=== PATIENT | male | born 1950 | race Caucasian/White ===

== ENCOUNTER → 2021-09-25 12:13 | Outpatient (BNVA) | payer MEDICARE, SELFPAY | PROVIDERS: Family Provider Nurse Practitioner Family; PCP Nurse Practitioner Family; Visit Provider Internal Medicine Pulmonary Disease | DX: J98.4 Other disorders of lung (principal); I25.10 Atherosclerotic heart disease of native coronary artery without angina pectoris; I25.2 Old myocardial infarction; E11.9 Type 2 diabetes mellitus without complications; J44.9 Chronic obstructive pulmonary disease, unspecified; Z87.891 Personal history of nicotine dependence; M25.641 Stiffness of right hand, not elsewhere classified; M25.642 Stiffness of left hand, not elsewhere classified; Z95.1 Presence of aortocoronary bypass graft | CPT/HCPCS: 36415; 71046; 80053; 83880; 85025; 85651; 86038; 86140; 86200; 86225; 86235; 86431; 99214 ==

== ENCOUNTER 2021-11-14 14:11 | Outpatient (CLI) | payer MEDICARE, SELFPAY ==
--- NOTE | 2021-11-14 14:18 | USCV_ITS ---
Jay Mallory Age: 71 Gender: M : 1950 Exam Date: 11/14/2021 14:34 Ordering Phys: Chiquis Ibrahim Technologist: PARVEZ Exam Location: [facility] [place] Indication: Orthopnea, CHF, h/o CABG BP: 130 / 64 HR: 88 Rhythm: Sinus Technical Quality: Technically difficult study MEASUREMENTS (Male / Female) Normal Values 2D ECHO LV Diastolic Diameter PLAX 6.7 cm 4.2 - 5.9 / 3.9 - 5.3 cm LV Systolic Diameter PLAX 5.5 cm IVS Diastolic Thickness 0.8 cm 0.6 - 1.0 / 0.6 - 0.9 cm IVS Systolic Thickness 1.4 cm LVPW Diastolic Thickness 0.9 cm 0.6 - 1.0 / 0.6 - 0.9 cm LVPW Systolic Thickness 1.2 cm RV Chamber Size 3.2 cm LVOT Diameter 2.0 cm LV Ejection Fraction 2D Teich 36.9 % LV Ejection Fraction MOD 2C 48.1 % LV Ejection Fraction 2C AL 51.0 % LA Diameter 4.3 cm LA Width 4.4 cm LA Height 5.2 cm RA Width 2.7 cm RA Height 4.6 cm Aorta at Sinotubular Diameter 2.2 cm IVC Diameter 2.3 cm DOPPLER AV Peak Velocity 126.0 cm/s LVOT Peak Velocity 87.0 cm/s AV Area Cont Eq vti 2.5 cm squared AV Area Cont Eq pk 2.2 cm squared MV Area PHT 2.2 cm squared Mitral E to A Ratio 0.7 MV E' Velocity 44.0 cm/s Mitral E to MV E' Ratio 8.8 Mitral E to LV E' Lateral Ratio 7.5 Mitral E to LV E' Septal Ratio 10.5 TV Peak E Velocity 62.0 cm/s Right Atrial Pressure 8.0 mmHg PV Peak Velocity 124.0 cm/s RV Acceleration Time 0.1 s RV Ejection Time 0.3 s RV AcT/ET 0.3 FINDINGS Left Ventricle Moderately dilated left ventricular cavity. Severely decreased left ventricular systolic function. Left ventricular ejection fraction is estimated at 25-30 %. Severe global hypokinesis with regional variation. Grade II diastolic dysfunction, moderately elevated filling pressures. Right Ventricle Normal right ventricular size and systolic function. RVSP could not be calculated due to incomplete tricuspid regurgitation velocity profile. Right Atrium Normal right atrial size. Left Atrium Mildly increased left atrial size. Mitral Valve Structurally normal mitral valve. No mitral valve stenosis. Mild mitral valve regurgitation. Aortic Valve Structurally normal trileaflet aortic valve. No aortic valve stenosis. Trace aortic valve regurgitation. Tricuspid Valve Structurally normal tricuspid valve. No tricuspid valve stenosis. Trace tricuspid valve regurgitation. Pulmonic Valve Pulmonic valve not well visualized. No pulmonary valve stenosis. Trace pulmonary valve regurgitation. Pericardium No pericardial effusion. Aorta Normal size aortic root and proximal ascending aorta. IVC Dilated IVC. CONCLUSIONS 1. This is a technically difficult study with poor apical windows. 2. Moderately dilated left ventricular cavity. Severely decreased left ventricular systolic function. Left ventricular ejection fraction is estimated at 25-30 %. Severe global hypokinesis with regional variation. Grade II diastolic dysfunction, moderately elevated filling pressures. 3. Mild mitral valve regurgitation. 4. No prior similar studies to compare. Kae Crook MD (Electronically Signed) Final Date: 18 Nov 2021 08:46 S
== END 2021-11-14 14:12 | disposition home or self-care (01) ==
LOC: RAD 14:13
PROVIDERS: PCP Nurse Practitioner Family; Visit Provider Nurse Practitioner Family
DX: R06.01 Orthopnea (principal)
CPT/HCPCS: 93306

== ENCOUNTER → 2021-11-21 09:08 | Outpatient (BNVA) | payer MEDICARE, SELFPAY | PROVIDERS: PCP Nurse Practitioner Family; Visit Provider Internal Medicine Pulmonary Disease | DX: J98.4 Other disorders of lung (principal); I25.10 Atherosclerotic heart disease of native coronary artery without angina pectoris; I25.2 Old myocardial infarction; E11.9 Type 2 diabetes mellitus without complications; R06.00 Dyspnea, unspecified; Z87.891 Personal history of nicotine dependence; J44.9 Chronic obstructive pulmonary disease, unspecified; M25.641 Stiffness of right hand, not elsewhere classified; M25.642 Stiffness of left hand, not elsewhere classified; E11.8 Type 2 diabetes mellitus with unspecified complications; I10 Essential (primary) hypertension | CPT/HCPCS: 99214 ==

== ENCOUNTER → 2021-11-27 12:01 | Outpatient (BNVA) | payer MEDICARE, SELFPAY | PROVIDERS: PCP Nurse Practitioner Family; Visit Provider Internal Medicine | DX: R06.00 Dyspnea, unspecified (principal); R07.9 Chest pain, unspecified; I11.0 Hypertensive heart disease with heart failure; I50.20 Unspecified systolic (congestive) heart failure; J44.9 Chronic obstructive pulmonary disease, unspecified; I25.10 Atherosclerotic heart disease of native coronary artery without angina pectoris; E11.9 Type 2 diabetes mellitus without complications; Z79.4 Long term (current) use of insulin; Z87.891 Personal history of nicotine dependence; Z95.1 Presence of aortocoronary bypass graft | CPT/HCPCS: 80048; 83880; 99204; 99205; 99215 ==

== ENCOUNTER → 2021-11-27 12:01 | Outpatient (BNVA) | payer MEDICARE, SELFPAY | PROVIDERS: PCP Nurse Practitioner Family; Visit Provider Internal Medicine | DX: I25.10 Atherosclerotic heart disease of native coronary artery without angina pectoris (principal); I11.0 Hypertensive heart disease with heart failure; I50.20 Unspecified systolic (congestive) heart failure; J44.9 Chronic obstructive pulmonary disease, unspecified; E11.9 Type 2 diabetes mellitus without complications; Z87.891 Personal history of nicotine dependence; Z79.4 Long term (current) use of insulin; Z95.1 Presence of aortocoronary bypass graft; I49.3 Ventricular premature depolarization | CPT/HCPCS: 93005; 99204 ==

== ENCOUNTER → 2021-12-05 12:32 | Outpatient (BNVA) | payer MEDICARE, SELFPAY | PROVIDERS: PCP Nurse Practitioner Family; Visit Provider Internal Medicine | DX: R07.9 Chest pain, unspecified (principal); Z79.01 Long term (current) use of anticoagulants; I50.9 Heart failure, unspecified | CPT/HCPCS: 85025; 85610; 93229 ==

== ENCOUNTER 2021-12-09 07:20 | Outpatient (CLI) | payer MEDICARE, SELFPAY ==
[2021-12-09] VITALS (39 sets, daily range): BP systolic 108–160; BP diastolic 50–92; PULSE 68–102; RESP 6–26; TEMP 36.4–37.1; O2SAT 91–97; BMI 28.2
--- NOTE | 2021-12-09 07:15 | XACV_ITS ---
Exam Room: 2 Ht: 183 cm Wt: 100 kg BSA: 2.27 m2 Gender: Male : 1950 Exam Priority: Routine Procedure(s): Procedure Description: Diagnostic procedure Procedure Description: PCI procedure Procedure Description: Right Heart Catheterization Procedure Description: Aortogram Procedure Description: Drug Eluting Coronary Stent Procedure Description: PTCA Procedure Description: Miscellaneous Procedure Description: ACT Procedure Description: Coronary Angiography Diagnostic Cath Status: Elective Diagnostic Findings * Left Main has no significant disease. * Left Anterior Descending has chronic total occlusion in mid segment.. * Circumflex has diffuse disease. Occluded OM branches. Supplies some collateral blood flow to RCA.. * Ramus artery is a large sized vessel. * Bypass graft is occluded * . Ramus: obstructive 70% stenosis, SOCORRO: 3 flow. * INDICATION: 71-year-old man with past medical history of coronary artery disease, COPD, prior CABG had been having worsening dyspnea on exertion. Recent echocardiogram showed EF of 25 to 30%. Plan for right and left heart cath.. * SVG to RCA: Occluded SVG to ramus artery: Occluded SPENCER to LAD: Patent without any significant stenosis. [place] LAD in apical segment has severe stenosis. [place] LAD is a small sized atretic vessel. SVG to OM: Could not be selectively engaged. However can be seen on root angiogram.. * Right heart cath findings: RA pressure: 8/8/5 mmHg RV pressure: 49/0/4 mmHg PA pressure: 48/21/30 mmHg PCW: 18/12/16 mmHg TP AO sat: 95% PA sat: 71% Cardiac output by Sukhdev: 10 L/min Cardiac index: 4.4 PVR: 1.4 Wood units. * Proximal Right Coronary Artery: total occlusion, SOCORRO: 0 flow. * Coronary angiography shows right dominance. PCI Status: Elective PCI Indication: Other Interventional Findings * Procedure detail: We engaged left main artery with XB 3.5 guide catheter. IV heparin was administered to maintain ACT above 250 S. 0.014 run-through guidewire was used to cross the stenotic ramus arteries segment and was put in distal vessel. We performed balloon angioplasty with 3.0 x 12 mm semicompliant balloon. This was followed by placement of 3.5 x 15 mm resolute Geismar drug-eluting stent. At this time final angiogram was performed that showed excellent stent expansion, no residual stenosis and SOCORRO-3 flow. Guidewire and guide catheter were removed. Patient left the Agency Sales Management Assistant in a stable condition.. * Ramus: 70% stenosis treated with a AB TREK 3.00X12 RX BALLOON, and MDT R RILEY 3.5X15 CONY. 0% residual stenosis, SOCORRO: 3 flow. Conclusions 1. Severe multivessel [place] coronary artery disease. 2. SVG to ramus and SVG to 3. RCA are occluded. 4. SPENCER to LAD is patent 5. however [place] 6. LAD distal to anastomosis is atretic vessel. 7. SVG to OM could not be selectively engaged however 8. can be seen on root angiogram.. 9. Severe large ramus artery stenosis s/p successful revascularization with CONY x1. 10. Normal right and left-sided cardiac pressures. 11. Patient has prior CABG. 12. Ramus was treated with a Balloon, and Drug Eluting Stent. Recommendations * Aspirin and Plavix for at least 1 year. * High intensity statin therapy. * Outpatient cardiology follow-up in 4 weeks. Interventional RX Recommendation: PCI w/o planned CABG Diagnostic RX Recommendation: PCI w/o planned CABG Pressures Phase:Rest AO : 134 / 67 ( 96 ) @ 10:26:00 AM 133 / 70 ( 98 ) @ 10:37:00 AM 138 / 76 ( 105 ) @ 10:46:00 AM 150 / 68 ( 107 ) @ 10:52:00 AM 139 / 65 ( 97 ) @ 10:57:00 AM RV : 49 / 0 / 4 @ 10:23:00 AM PA : 48 / 21 ( 30 ) @ 10:22:00 AM RA : a wave = 8 v wave = 8 mean = 5 @ 10:24:00 AM PCW : a wave = 18 v wave = 12 mean = 16 @ 10:22:00 AM O2 Content Phase:Rest PA : O2 Content O2: 71.2 @ 10:37:00 AM Saturations Phase:Rest AO : 85 @ 10:26:00 AM PA : 71 @ 10:37:00 AM Cardiac Output Phase:Rest Sukhdev : 10 @ 10:10:45 AM Sukhdev Cardiac Index: 5 @ 10:10:45 AM Flow Phase:Rest Qp : 10 @ 10:10:45 AM Qs : 10 @ 10:10:45 AM Clinical Evaluation EBL: 5mL-10mL Procedural Details Procedure Consent Obtained. Admit Source: Out Patient. Pre-Procedure Time Out. Identified patient by full name and date of as verbalized by the patient/guarantor. Does the consent match the physician's order: Yes. Accurate & Complete Informed Consent: Yes. Inpatient/Outpatient History & Physical on Chart: Yes. If H&P is completed, is and addenduem needed: N/A; If yes, is the addendum complete: N/A. Visualize and Verify Site with Patient/Guarantor: N/A. Relevant Radiology Images available: N/A. Pre-op teaching completed and patient verbalized understanding. The risks, benefits, and alternatives of sedation and/or procedure were discussed by physician. The patient agrees to continue. Procedure started. [facility] Clinical Fraility Score: 3: Managing Well. Agency Sales Management Assistant Indications: LV dysfunction, New onset CHF. Chest Pain Symptom Assessment: Atypical Angina. Correct patient, site and procedure confirmed by cath team. Current diagnosis: New onset CHF. PERRLA. Strong, equal hand mailer apprentice bilaterally. Lungs clear x 5 lobes. IV Site on Arrival: 20 gauge in the left anticubital. IV Fluids: 0.9% NaCl at KVO. 0 mL infused prior to laborer chicken farm. Pre Procedural Pulses: bilateral posterior tibial was Doppled. Pre Procedural Pulses: bilateral dorsalis pedis was Doppled. Pre Procedural Pulses: right radial was 3+. right groin was prepped with chloroprep then draped in the usual sterile fashion. left groin was prepped with chloroprep then draped in the usual sterile fashion. Physician notified. Baseline sample Acquired. HR: 42 BPM. Physician arrived. Physician scrubbed in. Immediate Pre-Procedure Time Out. Correct Patient: Yes; Correct Procedure: Yes; Correct Site: Yes; Correct Patient Position: Yes; Correct Supplies: Yes; Dried Flammable Prep: Yes; Blood Products Available: n/a. Lidocaine 1% infiltrated to the right groin. Venous access obtained. Arterial access obtained with micropuncture set. Brisbin-Rolando MON catheter inserted. Pressure measurements obtained. Brisbin-Rolando out. A 5 afghan JL4 catheter in over wire. Multiple views taken of left coronary artery. Catheter removed over the standard wire. Oxygen started at 2liters/min via nasal canula. A 5 afghan JR4 catheter in over wire. SVG to RCA occluded. SVG to Ramus occluded. SPENCER to LAD visualized and patent. Catheter removed over the standard wire. A 5 afghan Angled Pig catheter in over wire. Aortogram performed in NAVA @ 20 mL/second for a total of 40 mL. Catheter out. A 5 afghan LCB catheter in over wire. Catheter removed over the standard wire. A 6 afghan AL1 catheter in over wire. 6 afghan XB 3.5 guide catheter was inserted over the wire. Catheter removed over the standard wire. Runthrough guidewire was advanced through the guide catheter to lesion in the Ramus. Balloon inserted to lesion in the Ramus. Inflation number : 1 A AB TREK 3.00X12 RX BALLOON was prepped and advanced across the Ramus , then inflated to 12 MONAE for 0:18 seconds. Balloon out. Stent inserted to lesion in the Ramus. Inflation Number : 2 A FAUSTINO Herring RILEY 3.5X15 CONY -Lot Number# [id number] Exp 09-04-2024 was prepped and advanced across the Ramus. The stent was deployed at 12 MONAE for 0:25 seconds. ACT drawn. Results 357 seconds. Therapeutic limits - pre-heparin administration 90-150 seconds and monitoring heparin during a vascular procedure >250 seconds. Stent balloon out over wire. Results checked. Wire out. Guide catheter out. Medication's Wasted: Heparin = 4000 u. Medication's Wasted: Nitro = 49.8 mg. A Suture was successful obtaining hemostatsis at the Right Femoral vein insertion site. A Suture was successful obtaining hemostatsis at the Femoral artery insertion site. Total IV fluids: 200 mL. Sheath(s) sutured into position with 2-0 silk and sterile 4x4's and Op-site applied over the site. No oozing or signs and symptoms of hematoma noted. Post Procedure: Pulses reassessed and unchanged. PERRLA. Strong, equal hand mailer apprentice bilaterally. No VTE prophylaxis required. PCI Indication: CAD (without ischemic symptoms), Severe mid Ramus stenosis, LV dysfunction. Post-op diagnosis: Severe Ramus stenosis. Complications: none. Estimated blood loss: 5mL-10mL. Responsiveness - Normal response to verbal stimuli; alert and oriented, PERRLA. Airway - Unaffected, no intervention required; spontaneous ventilation. Circulation: W/N/L, pulses unchanged. Nausea/Vomiting: No. Procedure completed. Patient transferred by bed to 1st floor. Vital chart was stopped. Access Site Site: Right Femoral vein Sheath Size: 6 Fr Hemostasis Method: Suture Hemostasis Success: Successful Site: Femoral artery Sheath Size: 6 Fr Hemostasis Method: Suture Hemostasis Success: Successful Procedure Medications Start: 8:58 AM Stop: 8:58 AM Medication: Fentanyl Amount: 50 mcg Route: I.V. Start: 8:58 AM Stop: 8:58 AM Medication: 0.9% Saline Amount: 75 ml/hr Route: I.V. drip Start: 9:06 AM Stop: 9:06 AM Medication: Versed Amount: 1 mg Route: I.V. Start: 9:15 AM Stop: 9:15 AM Medication: Versed Amount: 1 mg Route: I.V. Start: 9:17 AM Stop: 9:17 AM Medication: Fentanyl Amount: 50 mcg Route: I.V. Start: 9:27 AM Stop: 9:27 AM Medication: Versed Amount: 1 mg Route: I.V. Start: 9:32 AM Stop: 9:32 AM Medication: Versed Amount: 1 mg Route: I.V. Start: 9:45 AM Stop: 9:45 AM Medication: Fentanyl Amount: 50 mcg Route: I.V. Start: 9:54 AM Stop: 9:54 AM Medication: Heparin Amount: 06194 units Route: I.V. Start: 9:55 AM Stop: 9:55 AM Medication: Fentanyl Amount: 50 mcg Route: I.V. Start: 10:03 AM Stop: 10:03 AM Medication: Nitrogylcerin Amount: 200 mcg Route: I.A. Start: 10:05 AM Stop: 10:05 AM Medication: Plavix Amount: 600 mg Route: P.O. Start: 10:06 AM Stop: 10:06 AM Medication: Aspirin Amount: 325 mg Route: P.O. I, the attending physician, have reviewed and verified all procedure medications. Yes, all medications given per verbal order History/Risk Factors Hypertension: Yes Dyslipidemia: No Peripheral Arterial Disease (PAD): No Myocardial Infarction (DE): No Obesity: No Renal Disease: No Tobacco Use: Former Prior Interventions PCI: No CABG: Yes Valve Surgery: No Report Signatures Finalized by Ignacio Paulino MD on 12/15/2021 11:51 PM
[2021-12-09] MEDS: diphenhydrAMINE 50 mg Capsule PO (07:36)
--- NOTE | 2021-12-09 08:50 | W.PM.OPSUD ---
Surgery/Procedure H&P Update DATE OF PROCEDURE: December 09, 2021 DATE H&P PERFORMED: 11/27/21 H&P UPDATE INFORMATION: I have reviewed H&P completed within last 30 days, I have examined patient prior to procedure and No changes to prior documentation PREOP DIAGNOSIS: New onset congestive heart failure PRIMARY INDICATION FOR PROCEDURE: New onset congestive heart failure PLANNED PROCEDURE: Operation Date: 12/09/21 08:30 Proposed Procedures p Cardiac Catheterization(Bilateral) - Ignacio Paulino M.D Possible percutaneous coronary intervention PATIENT REASSESSED PRIOR TO SEDATION, WITH NO CHANGE NOTED: Yes PHYSICAL EXAM: alert, oriented x 3, clear to auscultation bilaterally and regular rate & rhythm AIRWAY EVAL/ANESTHESIA PLAN: ASA III, Local Anesthesia, Risks, benefits & alternatives of sedation and/or procedure discussed and Patient agrees to continue as planned ADDITIONAL INFORMATION: Moderate sedation
[2021-12-09 09:29] LABS: ABG PCO2 44.7 mmHg (35-45); ABG PH Result 7.39 (7.35-7.45); Arterial Blood Gas Hematocrit 42.6 % (42-52); Base Excess ABG 1.2 mmol/L (-2.0-2.0); Blood Gas Operator Identificat CAK; Blood Gas Sample Type Arterial; HCO3 ABG 26.8 mmol/L (22-26); PO2 ABG 38.8 mmHg (80.0-100.0)
[2021-12-09 09:30] LABS: ABG PCO2 46.6 mmHg (35-45); ABG PH Result 7.36 (7.35-7.45); Arterial Blood Gas Hematocrit 42.2 % (42-52); Base Excess ABG 0.2 mmol/L (-2.0-2.0); Blood Gas Operator Identificat CAK; Blood Gas Sample Type Arterial; HCO3 ABG 26.2 mmol/L (22-26)
[2021-12-09 11:14] LABS: Glucose Point of Care 173 mg/dL (70-110)
--- NOTE | 2021-12-09 13:53 | PC.NURSE ---
PTT drawn by lab personnel at 1300. PTT still pending.
[2021-12-09 14:37] LABS: Partial Thromboplastin Time 160.3 SECONDS (23.9-36.7)
[2021-12-09 16:52] LABS: Partial Thromboplastin Time 32.4 SECONDS (23.9-36.7)
[2021-12-09] MEDS: fentaNYL 50 mcg/mL INJ 2mL IVP (17:37)
[2021-12-09] MEDS: carvedilol 3.125 mg Tablet PO (18:19)
[2021-12-09 18:26] LABS: Glucose Point of Care 232 mg/dL (70-110)
[2021-12-09] MEDS: insulin lispro 100 unit/1 mL SUBCUT (18:41)
--- NOTE | 2021-12-09 19:00 | PC.NURSE ---
Pt. arrived to ICU2 from CSU. Pt. is post cardiac cath with right groin cath site. Cath site has gauze with tagaderm over site. Site is clean, clear, intact, soft, and free from bruising at this time. No needs identified at this time. Will continue bedrest at this time.
[2021-12-09 21:18] LABS: Glucose Point of Care 197 mg/dL (70-110)
--- NOTE | 2021-12-09 23:45 | PC.NURSE ---
Bedrest is complete. Pt. cath site is clean clear intact and soft. No needs identified at this time.
[2021-12-10 04:19] LABS: Basophils # 0.1 10^3/uL (0.0-0.1); Basophils % 0.7 %; Eosinophils # 0.2 10^3/uL (0.0-0.8); Eosinophils % 2.8 %; Hematocrit 38.6 % (42.0-52.0); Hemoglobin 13.2 g/dL (11.7-16.6); Lymphocytes # 1.4 10^3/uL (0.8-4.8); Lymphocytes % 17.2 %; Mean Corpuscular HGB Conc 34.2 g/dL (30.0-36.0); Mean Corpuscular Hemoglobin 30.1 pg (28.0-34.0); Mean Corpuscular Volume 88.1 fl (80-94); Mean Platelet Volume 11.3 fL (7.4-10.4); Monocytes % 12.2 %; Neutrophils % 66.7 %; Nucleated Red Blood Cells % 0 %; Platelet Count 175 10^3/cmm (130-400); Red Blood Count 4.38 10^6/uL (4.1-5.3); Red Cell Distribution Width 13.3 % (12.1-15.1); White Blood Count 8.1 10^3/uL (4.0-10.0)
[2021-12-10 04:35] LABS: Anion Gap 17.2 (5-19); Blood Urea Nitrogen 25 mg/dL (8-23); Calcium 8.4 mg/dL (8.5-10.5); Carbon Dioxide 23 mmol/L (22-29); Chloride 103 mmol/L (98-107); Glucose 170 mg/dL (65-115); Osmolality Calculated 296 mOsm/kg (285-295); Potassium 4.2 mmol/L (3.5-5.1); Sodium 139 mmol/L (136-145)
[2021-12-10 06:00] VITALS: PULSE 88
[2021-12-10 07:25] LABS: Glucose Point of Care 169 mg/dL (70-110)
[2021-12-10] MEDS: insulin lispro 100 unit/1 mL SUBCUT (08:05)
[2021-12-10] MEDS: aspirin 81 mg EC Tablet PO (09:04)
[2021-12-10] MEDS: clopidogrel 75 mg Tablet PO (09:04)
[2021-12-10] MEDS: lisinopril 20 mg Tablet 40 MG PO (09:04)
[2021-12-10] MEDS: carvedilol 3.125 mg Tablet PO (09:04)
--- NOTE | 2021-12-10 09:05 | PM.SDS ---
Short Stay Summary Providers Date of Admit/Discharge: 12/09/21 Attending Provider: Ignacio Paulino M.D Primary Care Provider: Chiquis Ibrahim Chief Complaint: Dyspnea on exertion HPI History of Present Illness Jay Mallory is a 71 year old male with past medical history of coronary artery disease, COPD, prior CABG who was referred to [facility] care and for evaluation of dyspnea on exertion.? His recent echocardiogram has shown an EF of 25 to 30%.? Plan was to perform right and left heart cath Review of Systems Const: Denies: fever(s), chills, change in weight, fatigue or diaphoresis Eyes: Denies: change in vision or eye redness ENMT: Denies: throat pain, odynophagia, mouth pain or epistaxis Card: Denies: chest pain, palpitations, irregular heart rhythm, edema, swelling of feet/ankles, lightheadedness, syncope, pre-syncope, dyspnea on exertion, orthopnea or leg pain with exertion Resp: Denies: dyspnea, productive cough or wheezing GI: Denies: nausea, vomiting, hematemesis, hematochezia or melena : Denies: hematuria Musc: Denies: extremity swelling or joint pain Skin/Breast: Denies: rash, pruritus, erythema or new lesions Neuro: Denies: numbness in extremities, weakness in extremities, sensory changes, frequent falls, dizziness, Slurred speech present or difficulty communicating thoughts Psych: Denies: anxiety, depression, irritability, suicidal ideation or homicidal ideation Endo: Denies: polyuria, polydipsia or excessive sweating Daniel/Lymph: Reports: easy bruising and easy bleeding Home Meds/Allergies Home Medications and Allergies Home Medications Medication Instructions Recorded Confirmed Type aspirin 81 mg tablet,delayed 81 mg PO DAILY 09/25/21 12/16/21 History release dapagliflozin 10 mg tablet 10 mg PO DAILY 09/25/21 12/16/21 History (Farxiga) evolocumab 140 mg/mL subcutaneous See Rx Instructions SUBCUT .COMPLEX 09/25/21 12/16/21 History pen injector (Repatha SureClick) insulin aspart U-100 100 unit/mL See Rx Instructions SUBCUT TID 09/25/21 12/16/21 History (3 mL) subcutaneous pen (Novolog Flexpen U-100 Insulin aspart) insulin glargine U-300 conc 300 80 unit SUBCUT DAILY ml 09/25/21 12/16/21 History unit/mL (3 mL) subcutaneous pen (Toujeo Max U-300 SoloStar) krill oil 500 mg capsule See Rx Instructions PO .COMPLEX 09/25/21 12/16/21 History lansoprazole 30 mg capsule,delayed 30 mg PO DAILY 09/25/21 12/16/21 History release (Prevacid) ramipril 10 mg capsule 20 mg PO DAILY cap 09/25/21 12/16/21 History Allergies Allergy/AdvReac Type Severity Reaction Status Date / Time No Known Drug Allergies Allergy Unknown Unknown Verified 12/16/21 11:20 PFSH Acute PFSH: Medical History COPD (chronic obstructive pulmonary disease) Coronary artery disease Diabetes Hypertension Surgical History History of coronary artery bypass graft Family History Father Diabetes Hypertension Heart disease Mother Cancer Diabetes Brother Diabetes Sister Diabetes Social History Smoking and tobacco status: former smoker Quit status (tobacco): has quit using tobacco Year quit tobacco: 2020 after [place] Former quit date comment: 2ppd x 40 years Vitals/I&O/Wt Last Vital Signs Temp 98.3 F 12/09/21 16:01 Pulse 88 12/10/21 06:00 Resp 16 12/09/21 18:00 BP 142/87 12/09/21 18:00 Pulse Ox 95 12/09/21 18:00 12/09/21 12/10/21 12/10/21 22:59 06:59 14:59 Intake Total 120 / 120 240 / 240 Output Total 800 / 1050 1050 / 2100 400 / 400 Balance -680 / -930 -1050 / -1980 -160 / -160 Weight last 48 hrs Weight 220 lb Physical Exam Narrative: GENERAL: Patient is alert, awake and oriented x3. [] NECK: No jugular vein distension. [] HEENT: No cyanosis. No icterus. No pallor. [] HEART: Regular S1 and S2. No murmur, rub or gallop. [] LUNGS: Clear to auscultate bilaterally. [] ABDOMEN: Soft, nontender and nondistended. Positive bowel sounds. No guarding, rebound or tenderness. [] CENTRAL NERVOUS SYSTEM: Grossly nonfocal. [] EXTREMITIES: Lower extremities with 1+ edema bilaterally. Pulses palpable in the lower extremities, both dorsalis pedis and posterior tibial. [] Hospital Course Hospital Course Jay Mallory is a 71 year old male with past medical history of coronary artery disease, COPD, prior CABG who was referred to establish care and for evaluation of dyspnea on exertion.? His recent echocardiogram has shown an EF of 25 to 30%.? Plan was to perform right and left heart cath. Coronary angiogram demonstrated patent SPENCER to LAD, patent SVG to OM. Large sized ramus artery had severe stenosis and underwent successful revascularization with CONY x1. SVG to RCA and RCA were occluded. SSS Data Data Completed and Pending: Pending at discharge Category Date Time Status VENDING SUPERVISOR request for service Routin e Exams 12/09/21 07:15 Taken ABG ONLY [Arteria l Blood Gas W/O Co ox] Stat Lab 12/09/21 09:18 Results ABG ONLY [Arteria l Blood Gas W/O Co ox] Stat Lab 12/09/21 09:18 Results Discharge Plan Discharge Patient Disposition: Home Prescriptions: New clopidogrel 75 mg tablet 75 mg PO DAILY Qty: 90 3RF Continued Farxiga 10 mg tablet 10 mg PO DAILY 0RF aspirin 81 mg tablet,delayed release (DR/EC) 81 mg PO DAILY 0RF krill oil 500 mg capsule See Rx Instructions PO .COMPLEX 0RF Rx Instructions: 1 tab daily insulin aspart U-100 [Novolog Flexpen U-100 Insulin] 100 unit/mL (3 mL) insulin pen See Rx Instructions SUBCUT TID 0RF Rx Instructions: Use per sliding scale 6 times daily; Mao dose 100Units per day lansoprazole [Prevacid] 30 mg capsule,delayed release(DR/EC) 30 mg PO DAILY 0RF ramipril 10 mg capsule 20 mg PO DAILY 0RF Repatha SureClick 140 mg/mL pen injector See Rx Instructions SUBCUT .COMPLEX 0RF Rx Instructions: 1ml subcutaneously every two weeks Toujeo Max U-300 SoloStar 300 unit/mL (3 mL) insulin pen 80 unit SUBCUT DAILY 0RF carvedilol [Coreg] 3.125 mg tablet 3.125 mg PO BID Qty: 180 3RF Rx Instructions: must administer with a meal/food furosemide [Lasix] 20 mg tablet 20 mg PO DAILY Qty: 90 3RF Discharge Orders: Discharge Order (Routine); Ordered 12/10/21 Ordered By: Ignacio Paulino Referrals: Ignacio Paulino M.D [Physician] - 01/06/22 3:30 pm Ann Marie Paniagua FNP [Nurse Practitioner] - 12/16/21 10:45 am Diet: Diabetic Activity: Increase activity as tolerated Patient Instructions: Clopidogrel (By mouth) (Plavix), Coronary Angioplasty (DC), Opioid Safety Activity Restrictions/Additional Instructions: Please do not lift more than 5 pounds of weight for the next 5 days Discharge Date/Time: 12/10/21 11:00 Attestations Medical Necessity Statement*: Care not expected to cross 2 midnights. Patient came as outpatient for right and left heart cath and underwent successful revascularization of ramus artery. He stayed for observation overnight and is stable to be discharged now. Time Spent in Patient Care*: less than 30 min Quality Metrics Clinical Quality Measures: [ No reported AMI, CVA or VTE this stay] Coding Level of Care Code Acute Systems Trainer for Jesus Reynoso
--- NOTE | 2021-12-10 09:10 | PC.NURSE ---
Patient has no reports of pain at this time. Has no questions about medications. Education on new medication, Plavix. Appears to be in good spirits. Dr. Paulino in room planning discharge today.
--- NOTE | 2021-12-10 09:43 | PC.CHAP ---
Pastoral Care Encounter/Spiritual Assessment Type of Contact [] Declined plant engineering manager visit [] Patient/Family/Request visit [] Outpatient visit [] Follow-up visit [] Physician referral [] Code/Alert [x] Routine visit [] Staff referral [] Actively dying [] Patient sleeping [] Family support [] [] Out of room [] Palliative care [] [] Receiving care in room [] Pre-surgical visit [] Trauma [] Long length of stay [x] ICU visit [x] Other: on phone Relational/Emotional Strength [] Patient feels connected with others/family/visitors/staff [] Distress [] Loneliness/isolation [] Abandonment Spirituality of Patient [] Person of Ciara [] Attends Confucianism of their Ciara [] Believes in Prayer [] Reads Bible or Latter Day materials [] There are Spiritual issues to be addressed Selling Underwriter Interventions [x] Prayer [] Active listening [] Non-anxious presence [] Spiritual/emotional support [] Crisis/trauma care [] Spiritual counseling [] Bereavement support [] Provided bereavement packet [] Provided Bible/devotional materials [] Provided toy/stuffed animal, coloring book to patient or family member [] Provided Communion [] Anointing/Woodruff [] Salvation [x] Completed spiritual assessment [] Other: Impact on Illness or Injury [] Angry [] Fearful [] Anxious [] Often cries [] Exhaustion [] Unable to work [] Unable to attend yazidi [] Unable to walk/stand [] Unable to read [] Unable to drive [] Unable to eat/drink [] Unable to sleep [] Unable to be with family [] Patient intubated [] Other: Summary Time spent with patient
--- NOTE | 2021-12-10 11:01 | PC.NURSE ---
Patient discharged to home. Line removed. Left via wheelchair to personal vehicle with driving. Extensive education provided on new medication plavix. All questions answered.
== END 2021-12-10 11:00 | disposition home or self-care (01) ==
LOC: CCL 07:23 → ICU 12-10 09:05 → CSU 12-10 09:44 → ICU 12-10 09:44
PROVIDERS: PCP Nurse Practitioner Family; Visit Provider Internal Medicine
DX: I25.10 Atherosclerotic heart disease of native coronary artery without angina pectoris (principal); I11.0 Hypertensive heart disease with heart failure; I50.9 Heart failure, unspecified; Z95.1 Presence of aortocoronary bypass graft; Z87.891 Personal history of nicotine dependence; J44.9 Chronic obstructive pulmonary disease, unspecified; Z79.82 Long term (current) use of aspirin; E11.9 Type 2 diabetes mellitus without complications; Z79.4 Long term (current) use of insulin; I10 Essential (primary) hypertension; Z82.49 Family history of ischemic heart disease and other diseases of the circulatory system; Z83.3 Family history of diabetes mellitus
CPT/HCPCS: 36415; 36416; 80048; 82803; 82962; 85025; 85347; 85730; 93455; 96360; 96372; 99152; 99153; C1725; C1751; C1769; C1874; C1887; C1894; C9600; J1644; J1815; J2250; J3010; J3490; J7030; Q0163; Q9967

== ENCOUNTER → 2021-12-16 10:47 | Outpatient (BNVA) | payer MEDICARE, SELFPAY | PROVIDERS: PCP Nurse Practitioner Family; Visit Provider Nurse Practitioner Family | DX: Z09 Encounter for follow-up examination after completed treatment for conditions other than malignant neoplasm (principal); I25.10 Atherosclerotic heart disease of native coronary artery without angina pectoris; I10 Essential (primary) hypertension; Z87.891 Personal history of nicotine dependence | CPT/HCPCS: 80048; 99214 ==

== ENCOUNTER → 2022-01-06 15:49 | Outpatient (BNVA) | payer MEDICARE, SELFPAY | PROVIDERS: PCP Nurse Practitioner Family; Visit Provider Internal Medicine | DX: I25.10 Atherosclerotic heart disease of native coronary artery without angina pectoris (principal); I11.0 Hypertensive heart disease with heart failure; I50.9 Heart failure, unspecified; J44.9 Chronic obstructive pulmonary disease, unspecified; E11.9 Type 2 diabetes mellitus without complications; Z79.4 Long term (current) use of insulin; Z87.891 Personal history of nicotine dependence | CPT/HCPCS: 99214 ==

== ENCOUNTER 2022-01-21 10:42 | Outpatient (CLI) | payer MEDICARE, SELFPAY ==
--- NOTE | 2022-01-21 10:45 | CT_ITS ---
WS: [id number] LDCT LUNG CANCER SCREENING HISTORY: lung screening TECHNIQUE: Axial imaging performed from the apices to 1 cm below the costophrenic angles. Coronal and sagittal reformats are submitted with axial MIP series. All CT scans at [facility] use at least one of these dose optimization techniques: automated exposure control; mA and/or kV adjustment per patient size (includes targeted exams where dose is matched to clinical indication); or iterativ e reconstruction. DLP: 73.10 mGy.cm DIvol: Mean CTDIvol: 1.60 (mGy) COMPARISON: None available. Diagnostic quality: Satisfactory Lung Nodules: 3 mm slightly spiculated nodule at the RIGHT lung base, image 180 of series 5. Otherwis e chronic emphysema. No mass. No endobronchial lesions. Heart: 1 Mild cardiac enlargement. Other findings: Atherosclerosis aorta. No adenopathy. Moderate to extensive coronary artery atheroscl erotic disease. No adrenal adenoma. RIGHT renal cystic masses are probably cysts. Cannot be further e valuated on a nonenhanced examination. Renal ultrasound follow-up would provide additional informatio n. Severe fatty replacement of the pancreas. CT/CT lung screening 48081 IMPRESSION: LUNG-RADS: 2-Benign Appearance or Behavior FOLLOW UP: 12 Month: Continue annual screening with LDCT OTHER FINDINGS (S MODIFIER): None.
== END 2022-01-21 10:43 | disposition home or self-care (01) ==
LOC: RAD 10:44
PROVIDERS: PCP Nurse Practitioner Family; Visit Provider Internal Medicine Pulmonary Disease
DX: Z12.2 Encounter for screening for malignant neoplasm of respiratory organs (principal); Z87.891 Personal history of nicotine dependence
CPT/HCPCS: 71271

== ENCOUNTER → 2022-01-22 09:59 | Outpatient (BNVA) | payer MEDICARE, SELFPAY | PROVIDERS: PCP Nurse Practitioner Family; Visit Provider Internal Medicine Pulmonary Disease | DX: R06.00 Dyspnea, unspecified (principal); Z95.1 Presence of aortocoronary bypass graft; I25.10 Atherosclerotic heart disease of native coronary artery without angina pectoris; I25.2 Old myocardial infarction; Z87.891 Personal history of nicotine dependence | CPT/HCPCS: 99214 ==

== ENCOUNTER 2022-03-14 12:02 | Outpatient (CLI) | payer MEDICARE, SELFPAY ==
--- NOTE | 2022-03-14 13:00 | USCV_ITS ---
Jay Mallory Age: 72 Gender: M : 1950 Exam Date: 03/14/2022 13:03 Ordering Phys: Ignacio Paulino M.D ([email or web address]) Technologist: Kimmy Carrasquillo [place]am [place] [facility] [place]ication: CHF with unknown LVEF BP: 132 / 88 HR: 81 Rhythm: Sinus Technical Quality: Adequate MEASUREMENTS (Male / Female) Normal Values 2D ECHO LV Diastolic Diameter PLAX 5.4 cm 4.2 - 5.9 / 3.9 - 5.3 cm LV Systolic Diameter PLAX 4.5 cm IVS Diastolic Thickness 1.1 cm 0.6 - 1.0 / 0.6 - 0.9 cm IVS Systolic Thickness 1.3 cm LVPW Diastolic Thickness 1.2 cm 0.6 - 1.0 / 0.6 - 0.9 cm LVPW Systolic Thickness 1.5 cm LVOT Diameter 2.2 cm LV Ejection Fraction 2D Teich 35.2 % LV Ejection Fraction MOD 2C 52.6 % LV Ejection Fraction 2C AL 52.7 % LA Diameter 3.4 cm LA Width 3.5 cm LA Height 5.3 cm RA Width 3.1 cm RA Height 5.5 cm Aorta at Sinotubular Diameter 2.5 cm M-MODE MV E Point Septal Separation 2.3 cm FINDINGS Left Ventricle Right Ventricle Right Atrium Left Atrium Mitral Valve Aortic Valve Tricuspid Valve Pulmonic Valve Pericardium Aorta IVC CONCLUSIONS This is a limited echocardiogram to assess LV systolic function LV systolic function is severely reduced with EF of 25 to 30%. Severe global hypokinesis is seen. Compared to prior echocardiogram from 10/2021, no significant changes are seen in the LV systolic function Ignacio Paulino MD (Electronically Signed) Final Date: 23 March 2022 17:19 S
[2022-03-14] MEDS: perflutren protein-a microsphr 0.22 mg/mL SDV 3 mL IV (13:37)
== END 2022-03-14 12:03 | disposition home or self-care (01) ==
PROVIDERS: PCP Nurse Practitioner Family; Visit Provider Internal Medicine
DX: I50.9 Heart failure, unspecified (principal)
CPT/HCPCS: C8924

== ENCOUNTER → 2022-07-14 12:28 | Outpatient (BNVA) | payer MEDICARE, SELFPAY | PROVIDERS: PCP Nurse Practitioner Family; Visit Provider Internal Medicine | DX: I25.10 Atherosclerotic heart disease of native coronary artery without angina pectoris (principal); R93.1 Abnormal findings on diagnostic imaging of heart and coronary circulation; J44.9 Chronic obstructive pulmonary disease, unspecified; E11.9 Type 2 diabetes mellitus without complications; Z79.4 Long term (current) use of insulin; I11.0 Hypertensive heart disease with heart failure; I50.9 Heart failure, unspecified; Z87.891 Personal history of nicotine dependence; Z95.1 Presence of aortocoronary bypass graft | CPT/HCPCS: 99214 ==

== ENCOUNTER → 2022-07-17 08:17 | Outpatient (BNVA) | payer MEDICARE, SELFPAY | PROVIDERS: PCP Nurse Practitioner Family; Visit Provider Thoracic Surgery (Cardiothoracic Vascular Surgery) | DX: I11.0 Hypertensive heart disease with heart failure (principal); I50.9 Heart failure, unspecified; Z87.891 Personal history of nicotine dependence | CPT/HCPCS: 99203 ==

== ENCOUNTER → 2022-08-04 09:14 | Outpatient (BNVA) | payer MEDICARE, SELFPAY | PROVIDERS: PCP Nurse Practitioner Family; Visit Provider Family Medicine | DX: E11.9 Type 2 diabetes mellitus without complications (principal); I11.0 Hypertensive heart disease with heart failure; I50.9 Heart failure, unspecified; Z95.1 Presence of aortocoronary bypass graft; I25.10 Atherosclerotic heart disease of native coronary artery without angina pectoris | CPT/HCPCS: 80053; 80061; 83036; 84443; 85025 ==

== ENCOUNTER → 2022-08-12 06:00 | Day surgery (SDC) | payer MEDICARE, SELFPAY ==
--- NOTE | 2022-08-07 10:18 | ECG_ITS ---
[facility] Test Date: 2022-08-07 Pat Name: Jay Mallory Department: Room: Gender: Male Transmission Inspector: : 1950 Requested By: Jaylin Jefferson Order Number: [id number] Priscilla MD: Kae Crook M.D. Measurements Intervals [place] Rate: 77 P: 15 [place]: 182 QRS: -79 QRSD: 98 T: 37 QT: 385 QTc: 438 Interpretive Statements SINUS RHYTHM WITH FREQUENT VENTRICULAR PREMATURE COMPLEXES POSSIBLE ANTERIOR MYOCARDIAL INFARCTION , PROBABLY OLD [30 ms Q WAVE IN V3/V4, OR R < 0.2 mV IN V4] INFERIOR MYOCARDIAL INFARCTION , PROBABLY OLD [40+ ms Q WAVE AND/OR ST/T ABNORMALITY IN II/aVF] No previous ECG available for comparison Electronically Signed On 08-08-2022 8:13:56 CHURCH BUSINESS ADMINISTRATOR by Kae Crook M.D. [id number]
[2022-08-07 10:34] VITALS: BMI 28.2
[2022-08-07 11:02] LABS: Add Urine Microscopic? NO; Charge for UA Resulting for Rev
[2022-08-07 11:09] LABS: Bilirubin Urine Neg (Negative); Blood Urine Neg (Negative); Glucose Urine UA 4+ (Normal); Ketones Urine Negative (Negative); Leukocyte Esterase Urine Negative (Negative); Nitrate Urine Negative (Negative); Protein Urine Neg (Negative); Urine Appearance Clear (CLEAR); Urine Color Yellow (Yellow); Urobilinogen Urine Neg (Negative); pH Urine 5 (5-7)
--- NOTE | 2022-08-07 11:12 | P.ANESASSM_ITS ---
Pre-Anesthetic Assessment Height/Weight: Height 1.88 m Weight 99.79 kg Preop Diagnosis: congestive heart failure Operation Date: 08/12/22 07:00 Proposed Procedures p Defibrillator Placement 18225,I50.9(Not Applicable) - Freddy Tony MD Familial anesthetic complications: None Social No alcohol and No tobacco Exam alert, oriented x 3, clear to auscultation bilaterally and regular rate & rhythm Airway Mallampati: Class III Dentition: false CV/HEM Coronary Artery Disease Cath 12/18 Conclusions ? 1. Severe multivessel prairie band coronary artery disease. ? 2. SVG to ramus and SVG to ? 3. RCA are occluded. ? 4. SPENCER to LAD is patent ? 5. however prairie band ? 6. LAD distal to anastomosis is atretic vessel. ? 7. SVG to OM could not be selectively engaged however ? 8. can be seen on root angiogram.. ? 9. Severe large ramus artery stenosis s/p successful revascularization with CONY x1. ? 10. Normal right and left-sided cardiac pressures. ? 11. Patient has prior CABG. ? 12. Ramus was treated with a Balloon, and Drug Eluting Stent. echo ?CONCLUSIONS ?This is a limited echocardiogram to assess LV systolic function ?LV systolic function is severely reduced with EF of 25 to 30%.? ?Severe global hypokinesis is seen. ?Compared to prior echocardiogram from 10/2021, no significant ?changes are seen in the LV systolic function Holter 1.? Monitoring period was from 12/05/2021 to 01/03/2022 2.? Baseline heart rhythm was normal sinus rhythm with heart rate of 77 bpm. 3.? Average heart rate was 79 bpm.? Maximum heart rate was 142 bpm and patient was in sinus tachycardia at that time.? This was recorded on 12/25/2021 at 1037 AM.? Minimum heart rate was 56 bpm.? Patient had sinus bradycardia.? This was recorded at 1 12/28/2021 at 5:17 PM.? 4% of total beats were ventricular ectopic beats.? Less than 1% supraventricular ectopic beats. 4.? No atrial fibrillation was seen.? Nonsustained VT episodes were seen. 5.? No pauses seen 6.? No patient reported symptoms None reported Hepatic None reported GI Gastroesophageal Reflux Disease Metabolic Diabetes Mellitus [facility] [place]zen shoulder (R), L elbow (tennis elbow) Anesthetic Plan ASA status: 4 Anesthesia: MAC Risk of > 500 ml blood loss (7ml/kg in children): No Medications/Allergies Home Medications Medication Instructions Recorded Confirmed Last Taken Type aspirin 81 mg tablet,delayed 81 mg PO DAILY 09/25/21 08/07/22 08/07/22 History release dapagliflozin 10 mg tablet 10 mg PO DAILY 09/25/21 08/07/22 08/07/22 History (Farxiga) insulin aspart U-100 100 unit/mL See Rx Instructions SUBCUT TID 09/25/21 08/07/22 08/07/22 History (3 mL) subcutaneous pen (Novolog FlexPen U-100 Insulin aspart) lansoprazole 30 mg capsule,delayed 30 mg PO DAILY 09/25/21 08/07/22 08/07/22 History release (Prevacid) furosemide 20 mg tablet (Lasix) 20 mg PO DAILY #90 tabs 12/02/21 08/07/22 08/07/22 Rx clopidogrel 75 mg tablet 75 mg PO DAILY #90 tabs 12/10/21 08/07/22 08/06/22 Rx atorvastatin 20 mg tablet 20 mg PO DAILY 01/22/22 08/07/22 08/07/22 History vit C 250 mg-vit E 200 unit-zinc 2 cap PO DAILY 01/22/22 08/07/22 08/07/22 History ox 12.5 sw-pkpdek-fjreui-zeax capsule (ICaps AREDS2) carvedilol 6.25 mg tablet 6.25 mg PO BID #180 tabs 07/14/22 08/07/22 08/07/22 Rx ramipril 10 mg capsule 20 mg PO DAILY 07/17/22 08/07/22 08/07/22 History gabapentin 300 mg capsule 300 mg PO .nightly 90 days #90 caps 08/01/22 08/07/22 08/07/22 Rx insulin glargine U-300 conc 300 60 unit (0.2 mL) SUBCUT DAILY #6 mL 08/01/22 08/07/22 08/06/22 Rx unit/mL (3 mL) subcutaneous pen (Toujeo Max U-300 SoloStar) Allergies Allergy/AdvReac Type Severity Reaction Status Date / Time No Known Drug Allergies Allergy Unknown Unknown Verified 08/01/22 10:55 [facility] Anesthesia Medical History COPD (chronic obstructive pulmonary disease) Coronary artery disease Diabetes Hypertension Surgical History History of coronary artery bypass graft Family History Father Diabetes Hypertension Heart disease Mother Cancer Diabetes Brother Diabetes Sister Diabetes Social History Smoking and tobacco status: former smoker Quit status (tobacco): has quit using tobacco Year quit tobacco: 2020 after [place] Former quit date comment: 2ppd x 40 years Data Anesthesia Urine 08/07/22 Range/Units 10:53 Urine Color Yellow (Yellow) Urine Appearance Clear (CLEAR) Urine pH 5 (5-7) Ur Specific [place] 1.020 (1.005-1.030) Urine Protein Neg (Negative) Urine Glucose (UA) 4+ H (Normal) Urine Ketones Negative (Negative) Urine Nitrate Negative (Negative) Urine Bilirubin Neg (Negative) Ur Leukocyte Esterase Negative (Negative) Cardiac Studies: Echocardiogram 03/14/22 Cardiac Event Monitor 12/05/21
--- NOTE | 2022-08-12 10:25 | P.ANESUD_ITS ---
Pre-Anesthetic Update Pre-Anesthetic Assessment: Date of Surgery/Procedure: 08/12/22 Preop Kristy gnosis: congestive heart failure Proposed Procedure: Operation Date: 08/12/22 07:00 Proposed Procedures p Defibrillator Placement 24362,I50.9(Not Applicable) - Freddy Tony MD Any changes to Pre-Anesthetic Assessment?: No Exam: Pre-Anes Outpt Exam: alert, oriented x 3, clear to auscultation bilaterally and regular rate & rhythm Cardiac Studies: Echocardiogram 03/14/22 Cardiac Event Monitor 12/05/21
--- NOTE | 2022-08-12 16:17 | ANE.PACU2 ---
Inpatient post-anesthesia follow up: Airway intact: Yes Vital signs: Temperature Pulse Rate Respiratory Rate Blood Pressure Pulse Oximetry Oxygen Delivery Me thod Oxygen Flow Rate Fraction of Inspir ed Oxygen Hydration adequate: Yes Nausea and vomiting: No Pain level: 2 Mental status: Baseline
== END ==
PROVIDERS: PCP Family Medicine; Visit Provider Thoracic Surgery (Cardiothoracic Vascular Surgery)
PROC: 0JH608Z Insertion of Defibrillator Generator into Chest Subcutaneous Tissue and Fascia, Open Approach (ICD-10-PCS; CPT 33249; principal; 2022-08-12 07:00)
DX: I50.9 Heart failure, unspecified (principal); Z01.818 Encounter for other preprocedural examination
CPT/HCPCS: 81003; 93005; J2704; J3490

== ENCOUNTER 2022-08-26 11:43 | Observation (INO) | payer MEDICARE, SELFPAY ==
[2022-08-25 10:29] VITALS: BMI 28.2
[2022-08-26] VITALS (17 sets, daily range): BP systolic 119–154; BP diastolic 67–86; PULSE 62–80; RESP 16–20; TEMP 36.1–37.3; O2SAT 93–97
--- NOTE | 2022-08-26 05:58 | SC_ITS ---
WS: [id number] C-arm fluoroscopy for pacemaker, 08/26/2022 Clinical Data: AICD implantation Comparison: None. Findings: Dr. Davila inserted an AICD device. SC/C-arm FL for Pacemaker Impression: Insertion of AICD.
--- NOTE | 2022-08-26 06:22 | P.HP_ITS ---
Providers/Chief Complaint Admitting Physician: Dr. Tony/cardiothoracic surgery Primary Care Provider: Vincent Castro MD Chief Complaint: heart failure NOS History of Present Illness Jay Mallory is a 72 year old gentleman whom I first saw in consultation in my clinic on July [address] 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 He has a known ejection fraction of 25 to 30% which is unchanged for over a year. He has had prior coronary artery bypass grafting and subsequent interventions including recent stenting to the ramus artery by Dr. Paulino on December 09 of last year. Despite maximal medical management, his ejection fraction has not improved and remains approximately 25%. He does have increasing dyspnea with exertion. He presents today for planned elective AICD implantation. Review of Systems Const: Denies: fever(s) or chills Card: Reports: lightheadedness and dyspnea on exertion; Denies: chest pain or syncope Resp: Reports: dyspnea; Denies: productive cough or hemoptysis GI: Denies: abdominal pain, nausea or vomiting Musc: Reports: neck pain; Denies: back pain Neuro: Denies: headache(s) or numbness in extremities Psych: Denies: anxiety or depression Daniel/Lymph: Reports: easy bruising Medications/Allergies Home Medications Medication Instructions Recorded Confirmed Last Taken Type aspirin 81 mg tablet,delayed 81 mg PO DAILY 09/25/21 08/25/22 08/22/22 History release dapagliflozin 10 mg tablet 10 mg PO DAILY 09/25/21 08/25/22 08/25/22 History (Farxiga) insulin aspart U-100 100 unit/mL See Rx Instructions SUBCUT TID 09/25/21 08/25/22 08/25/22 History (3 mL) subcutaneous pen (Novolog FlexPen U-100 Insulin aspart) lansoprazole 30 mg capsule,delayed 30 mg PO DAILY 09/25/21 08/25/22 08/25/22 History release (Prevacid) furosemide 20 mg tablet (Lasix) 20 mg PO DAILY #90 tabs 12/02/21 08/25/22 08/25/22 Rx clopidogrel 75 mg tablet 75 mg PO DAILY #90 tabs 12/10/21 08/25/22 08/19/22 Rx vit C 250 mg-vit E 200 unit-zinc 2 cap PO BID 01/22/22 08/25/22 08/25/22 History ox 12.5 fc-fdiiry-qzyhwv-zeax capsule (ICaps AREDS2) carvedilol 6.25 mg tablet 6.25 mg PO BID #180 tabs 07/14/22 08/25/22 08/26/22 Rx ramipril 10 mg capsule 20 mg PO DAILY 07/17/22 08/25/22 08/25/22 History gabapentin 300 mg capsule 300 mg PO .nightly 90 days #90 caps 08/01/22 08/25/22 08/24/22 Rx insulin glargine U-300 conc 300 60 unit (0.2 mL) SUBCUT DAILY #6 mL 08/01/22 08/25/22 08/24/22 Rx unit/mL (3 mL) subcutaneous pen (Toujeo Max U-300 SoloStar) Allergies Allergy/AdvReac Type Severity Reaction Status Date / Time No Known Drug Allergies Allergy Unknown Unknown Verified 08/25/22 10:25 PFSH Acute PFSH: Medical History COPD (chronic obstructive pulmonary disease) Coronary artery disease Diabetes Hypertension Surgical History History of coronary artery bypass graft Family History Father Diabetes Hypertension Heart disease Mother Cancer Diabetes Brother Diabetes Sister Diabetes Social History Smoking and tobacco status: former smoker Quit status (tobacco): has quit using tobacco Year quit tobacco: 2020 after [place] Former quit date comment: 2ppd x 40 years Vitals/I&O/Wt Last Vital Signs Temp 97.3 F L 08/26/22 06:07 Pulse 80 08/26/22 06:07 Resp 18 08/26/22 06:07 BP 119/73 08/26/22 06:07 Pulse Ox 94 08/26/22 06:07 O2 Del Method 08/26/22 06:13 Weight last 48 hrs Weight 220 lb Physical Exam Const: COMMON NORMALS: no acute distress, average body habitus and patient oriented x3 HENMT: COMMON NORMALS: normocephalic, atraumatic, hearing grossly normal bilaterally, external ears normal and Normal external nose present Eye: COMMON NORMALS: Equal, round and reactive pupils present and EOMs intact bilaterally Neck/C-Spine: COMMON NORMALS: no lymphadenopathy and No carotid bruits; negative for full ROM Chest: COMMONS NORMALS: normal inspection of the chest and normal palpation of entire chest wall OTHER: Sternum is stable to palpation. Well-healed midline sternotomy scar Resp: COMMON NORMALS: normal respiratory effort and clear to auscultation bilaterally Cardio: COMMON NORMALS: regular rate, regular rhythm, S1 normal heart sound present and No murmurs present (Cardio) GI: COMMON NORMALS: Normal to inspection, nondistended, normoactive bowel sounds present Extremity: COMMON NORMALS: no clubbing, cyanosis or edema Neuro: COMMON NORMALS: patient oriented x3, moves all extremities, no focal motor deficits and no sensory deficits noted A&P Assessment and plan (1) Congestive heart failure: Medically refractory congestive heart failure ejection fraction of 25%. AICD has been recommended as primary prevention. Rationale was frankly discussed. Details and risk of surgery again Reviewed with Mr. Roselyn Francois and his . Risk discussed include possible stroke, major bleeding, pneumothorax, cardiac perforation, lead migration requiring need for revision, infection requiring need to remove device, inability to adequately place device, pain after surgery, and need for long-term follow-up. All questions answered. They wish for us to proceed. Attestations Medical Necessity Statement*: 72-year-old gentleman with medically refractory cardiomyopathy with congestive heart failure and ejection fraction of 25% Coding Level of Care Code Acute Code for [facility] Fwd Diagnoses Congestive heart failure I50.9
[2022-08-26 06:23] LABS: Glucose Point of Care 144 mg/dL (70-110)
[2022-08-26] MEDS: sodium chloride 0.9% 1,000 ML 30 ML IV (06:35)
--- NOTE | 2022-08-26 06:47 | P.ANESUD_ITS ---
Pre-Anesthetic Update Pre-Anesthetic Assessment: Date of Surgery/Procedure: 08/26/22 Preop Kristy gnosis: congestive heart failure Proposed Procedure: Operation Date: 08/26/22 07:00 Proposed Procedures p Defibrillator Placement 83924,I50.9(Not Applicable) - Freddy Tony MD Any changes to Pre-Anesthetic Assessment?: No Last Intake: Intake Last Liquid Date 08/25/22 Last Liquid Time 21:30 Last Solid Date 08/25/22 Last Solid Time 17:30 Vitals: Temperature 97.3 F L 08/26/22 06:07 Temperature Source Temporal Artery S can 08/26/22 06:07 Pulse Rate 80 08/26/22 06:07 Respiratory Rate 18 08/26/22 06:07 Blood Pressure 119/73 08/26/22 06:07 Blood Pressure Ana Maria n 88 08/26/22 06:07 Pulse Oximetry 94 08/26/22 06:07 Oxygen Delivery Me thod 08/26/22 06:13 Exam: Pre-Anes Outpt Exam: alert, oriented x 3, clear to auscultation bilaterally and regular rate & rhythm Cardiac Studies: Echocardiogram 03/14/22 Cardiac Event Monitor 12/05/21
[2022-08-26] MEDS: ceFAZolin 2,000 MG in sodium chloride 0.9% (plus) 50 ML 100 MG IV (06:56)
[2022-08-26] MEDS: ceFAZolin 1,000 mg SDV 1000 MG IRRIGATION (07:26)
[2022-08-26] MEDS: lidocaine 2% INJ 20 mL INJECTION (07:26)
--- NOTE | 2022-08-26 08:52 | XR_ITS ---
WS: [id number] Portable AP upright chest, 08/26/2022 Clinical Data: post op cabg Comparison: Two-view chest, 09/25/2021 Findings: There is a permanent pacemaker which has been inserted. The heart is normal. The patient's hand obscures detail over the heart. No pneumonia or pneumothorax is seen. There are midline sternoto my sutures. There are no nodules, masses or effusions. XR/XR chest 1V portable [id number] Impression: Insertion of cardiac pacemaker and defibrillator.
--- NOTE | 2022-08-26 09:07 | P.OP_ITS ---
Operative Report Date of procedure: August 26, 2022 Pre-op diagnosis: Preop Diagnosis congestive heart failure Post-op diagnosis: same Procedure done: Automatic implantable cardiac defibrillator implantation Implants: AICD generator AICD right ventricular lead Pathology: none sent Surgeon: Freddy Tony Anesthesia: MAC and Local Complications: None Condition: stable Disposition: PACU Brief History: Mr. Mallory is a 72-year-old gentleman medically refractory congestive heart failure status post CABG and recent left heart catheterization and coronary stenting to the ramus artery. He has progressive symptomatology of increasing dyspnea with exertion. He has received maximal medical management without substantial improvement in his ejection fraction of 25% on recent echocardiogram. AICD implantation been recommended. Rationale was carefully discussed. Details and risk of the procedure were reviewed and all questions answered. Appropriate consents have been reviewed and signed. Procedure: Procedure: Mr. Mallory was taken to the OR suite and placed in the supine position over a shoulder roll. He received conscious sedation with continuous anesthesia monitoring by. He is entire chest was sterilely prepped and draped. Appropriate timeout was completed and confirmed by all OR members present. 1% lidocaine was infiltrated in the left subclavicular region. While in Trendelenburg position, utilizing modified seldinger technique, a guidewire was placed in the left subclavian vein. This was confirmed in position by fluoroscopy. Next, after infiltration with lidocaine, a subcutaneous pocket was created beginning from the exit point of the guidewire and extending laterally and inferiorly. Cautery was utilized to create the pocket just above the pectoralis musculature. Hemostasis was confirmed. An antibiotic-soaked sponge was placed in the wound. A dilator and tear-away sheath was placed over the guidewire and advanced under fluoroscopy. Guidewire and dilator were removed. Next using a combination of curved and straight stylettes, the right ventricular lead was placed in position by fluoroscopy. The distal screw was extended. I nterrogation was then performed confirming appropriate parameters. The tear- away sheath was then removed and the ventricular lead was sewn to the floor of the subcutaneous pocket. AICD generator was brought into the field, and after confirmation of hemostasis in the subcutaneous pocket, the lead was connected to the generator with appropriate capture. The entire system was interrogated by fluoroscopy. Lead and generator were secured in the pocket. Sponge and needle count was correct. The wound was then closed in 2 layers of 3-0 Vicryl suture. Skin was reapproximated in a subcuticular manner with 4-0 Monocryl suture. A pressure dressing was applied. The left arm was placed in a sling. The patient had equal breath sounds bilaterally. He was then transferred to the PACU, where chest x-ray was completed revealing appropriate positioning of the lead and no evidence for pneumothorax. I did certified addiction counselor with the family at the completion of the procedure. Following are the specifics of this system: Right ventricular lead is 62 cm and model 6935M. Serial number [id number] Ventricular lead had sensing of 7.5 mV with an impedance of 513 ohms. Threshold was 0.75 V [employer] AICD generator: Model # [id number] Serial # [id number]
--- NOTE | 2022-08-26 12:02 | PC.NURSE ---
1145 report given to [email or web address]
[2022-08-26 13:05] LABS: Glucose Point of Care 320 mg/dL (70-110)
[2022-08-26] MEDS: pantoprazole DR 40 mg Tablet PO (13:15)
[2022-08-26] MEDS: carvedilol 6.25 mg Tablet PO ×2 (13:15→17:33)
[2022-08-26] MEDS: insulin lispro 100 unit/1 mL SUBCUT ×3 (13:16→21:51)
[2022-08-26] MEDS: FUROsemide 20 mg Tablet PO (13:16)
--- NOTE | 2022-08-26 14:24 | ANE.PACU2 ---
Inpatient post-anesthesia follow up: Airway intact: Yes Vital signs: Temperature 97.1 F Pulse Rate 64 Respiratory Rate 18 Blood Pressure 134/80 Pulse Oximetry 97 Oxygen Delivery Me thod Room Air Oxygen Flow Rate Fraction of Inspir ed Oxygen Hydration adequate: Yes Nausea and vomiting: No Pain level: 2 Mental status: Baseline
[2022-08-26] MEDS: HYDROcodone-acetaminophen 5-325 mg Tablet 1 TAB PO (16:04)
[2022-08-26] MEDS: ceFAZolin 1,000 MG in sodium chloride 0.9% (plus) 50 ML 100 MG IV ×2 (16:14→23:04)
[2022-08-26 17:25] LABS: Glucose Point of Care 286 mg/dL (70-110)
--- NOTE | 2022-08-26 18:07 | ECG_ITS ---
[facility] Test Date: 2022-08-26 Pat Name: Jay Mallory Department: Room: 258 Gender: Male Basket Person: : 1950 Requested By: Freddy Tony Order Number: [id number] Priscilla MD: Zane Anderson M.D. Measurements Intervals [place] Rate: 81 P: 3 [place]: 189 QRS: -49 QRSD: 102 T: 45 QT: 363 QTc: 424 Interpretive Statements SINUS RHYTHM WITH FREQUENT VENTRICULAR PREMATURE COMPLEXES POSSIBLE LEFT ATRIAL ENLARGEMENT [-0.1mV P-WAVE IN V1/V2] ANTERIOR MYOCARDIAL INFARCTION , PROBABLY OLD [40+ ms Q WAVE AND/OR ST/T ABNORMALITY IN V3/V4] INFERIOR MYOCARDIAL INFARCTION , PROBABLY OLD [40+ ms Q WAVE AND/OR ST/T ABNORMALITY IN II/aVF] INTERPRETATION BASED ON A DEFAULT AGE OF 40 YEARS Compared to ECG 08/07/2022 10:18:55 No significant changes Electronically Signed On 08-27-2022 14:19:27 SUPERVISOR MECHANIC BOILERMAKING by Zane Anderson M.D. [id number]
--- NOTE | 2022-08-26 18:55 | PC.NURSE ---
Pt is currently resting in bed. The tele monitor showed pt was bradycardic. This nurse and other nurses did an EKG and notified Dr. Tony of the situation. Nurses adjusted the settings on the tele with no further bradycardic readings. Nurses interrogated the AICD. Physician gave orders to hold cardiac med. See MAR. Pt has no other needs at this time. VSS. Call light and bedside table are within reach.
--- NOTE | 2022-08-26 20:13 | ECG_ITS ---
[facility] Test Date: 2022-08-26 Pat Name: Jay Mallory Department: Room: 258 Gender: Male Crane Operator Cab: : 1950 Requested By: Deshawn Jain Order Number: [id number] Priscilla MD: Zaen Anderson M.D. Measurements Intervals [place] Rate: 82 P: 5 [place]: 195 QRS: -52 QRSD: 100 T: 54 QT: 368 QTc: 431 Interpretive Statements SINUS RHYTHM POSSIBLE LEFT ATRIAL ENLARGEMENT [-0.1mV P-WAVE IN V1/V2] ANTERIOR MYOCARDIAL INFARCTION , PROBABLY OLD [40+ ms Q WAVE AND/OR ST/T ABNORMALITY IN V3/V4] INFERIOR MYOCARDIAL INFARCTION , PROBABLY OLD [40+ ms Q WAVE AND/OR ST/T ABNORMALITY IN II/aVF] Compared to ECG 08/26/2022 18:07:18 Ventricular premature complex(es) no longer present Myocardial infarct finding still present Electronically Signed On 08-27-2022 14:20:26 MARINE REPORTER by Zane Anderson M.D. [id number]
[2022-08-26] MEDS: gabapentin 300 mg Capsule PO (20:55)
[2022-08-26 21:46] LABS: Glucose Point of Care 235 mg/dL (70-110)
--- NOTE | 2022-08-27 03:39 | ECG_ITS ---
[facility] Test Date: 2022-08-27 Pat Name: Jay Mallory Department: Room: 258 Gender: Male Solderer Assembly Repair: : 1950 Requested By: Freddy Tony Order Number: [id number] Priscilla MD: Zane Anderson M.D. Measurements Intervals [place] Rate: 90 P: -5 [place]: 182 QRS: -51 QRSD: 113 T: 74 QT: 368 QTc: 450 Interpretive Statements SINUS RHYTHM WITH FREQUENT VENTRICULAR PREMATURE COMPLEXES IN A BIGEMINAL PATTERN INFERIOR MYOCARDIAL INFARCTION , PROBABLY OLD [40+ ms Q WAVE AND/OR ST/T ABNORMALITY IN II/aVF] ANTEROSEPTAL MYOCARDIAL INFARCTION , OF INDETERMINATE AGE [40+ ms Q WAVE IN V1-V4] Compared to ECG 08/26/2022 20:19:01 Ventricular premature complex(es) now present Myocardial infarct finding still present Electronically Signed On 08-27-2022 14:22:54 SAP BW DEVELOPER by Zane Anderson M.D. [id number]
[2022-08-27 04:05] VITALS: BP 176/57; PULSE 43; RESP 16; TEMP 36.6; O2SAT 96
[2022-08-27 05:10] LABS: Basophils # 0.1 10^3/uL (0.0-0.1); Basophils % 0.8 %; Eosinophils # 0.2 10^3/uL (0.0-0.8); Eosinophils % 2.4 %; Hematocrit 43.5 % (42.0-52.0); Hemoglobin 14.1 g/dL (11.7-16.6); Lymphocytes # 1.8 10^3/uL (0.8-4.8); Lymphocytes % 19.9 %; Mean Corpuscular HGB Conc 32.4 g/dL (30.0-36.0); Mean Corpuscular Volume 92.6 fl (80-94); Mean Platelet Volume 10.9 fL (7.4-10.4); Monocytes # 1.1 10^3/uL (0.2-0.9); Monocytes % 12.3 %; Neutrophils # 5.94 10^3/uL (1.8-7.7); Neutrophils % 64.3 %; Nucleated Red Blood Cells % 0 %; Platelet Count 171 10^3/cmm (130-400); Red Cell Distribution Width 13.2 % (12.1-15.1); White Blood Count 9.2 10^3/uL (4.0-10.0)
--- NOTE | 2022-08-27 05:15 | PC.NURSE ---
This nurse along with MARVA Chavarria and DURAN Allen ran an interrogation on the pts new AICD device.
[2022-08-27] MEDS: HYDROcodone-acetaminophen 5-325 mg Tablet 1 TAB PO (05:22)
[2022-08-27 05:27] LABS: Alanine Aminotransferase 25 U/L (0-41); Albumin Level 3.8 g/dL (3.5-5.2); Alkaline Phosphatase 97 U/L (40-130); Aspartate Amino Transferase 21 U/L (0-40); Blood Urea Nitrogen 26 mg/dL (8-23); Calcium 8.8 mg/dL (8.5-10.5); Carbon Dioxide 27 mmol/L (22-29); Chloride 102 mmol/L (98-107); Glucose 159 mg/dL (65-115); Osmolality Calculated 296 mOsm/kg (285-295); Sodium 139 mmol/L (136-145); Total Bilirubin 0.5 mg/dL (0.15-1.2); Total Protein 6.8 g/dL (6.6-8.7)
--- NOTE | 2022-08-27 05:47 | XRR_ITS ---
PROCEDURE INFORMATION: Exam: XR Chest Exam date and time: 08/27/2022 5:59 AM Age: 72 years old Clinical indication: Device placement; Cardiac defibrillator lead placement or adjustment; Prior surgery; Surgery type: Defibrillator placement 08/26/22; Additional info: Surgery followup TECHNIQUE: Imaging protocol: Radiologic exam of the chest. Views: 1 view. COMPARISON: CR XR chest 1V portable [id number] 08/26/2022 8:31 AM FINDINGS: Tubes, catheters and devices: Cardiac device noted overlying the left chest. Lungs: The lung parenchyma is clear. Pleural spaces: No pneumothorax. No pleural effusion. Heart/Mediastinum: Postsurgical changes in the mediastinum. Cardiac silhouette is at the upper limits of normal, similar to prior exam. Bones/joints: Median sternotomy wires noted. XR/XR chest 1V portable [id number] IMPRESSION: No acute cardiopulmonary abnormality identified.
[2022-08-27] MEDS: ceFAZolin 1,000 MG in sodium chloride 0.9% (plus) 50 ML 100 MG IV (06:21)
[2022-08-27 06:41] LABS: Glucose Point of Care 189 mg/dL (70-110)
--- NOTE | 2022-08-27 06:50 | PM.DCS ---
Discharge Providers Date of Admission: 08/26/22 11:43 Date of Discharge: August 27, 2022 Attending Provider at Admission: Freddy Tony MD Attending Provider at Discharge: Freddy Tony MD Primary Care Provider: Vincent Castro MD Diagnoses at Discharge Discharge Diagnosis (1) Congestive heart failure: Status: Acute Reason for Visit Reason for Visit: heart failure NOS Brief History: 72-year-old gentleman with ischemic cardiomyopathy and medically refractory congestive heart failure ejection fraction of 20 to 25%. Hospital Course Hospital Course Mr. Mallory was electively admitted for AICD implantation for primary prevention related to medically refractory congestive heart failure and ischemic cardiomyopathy. Postoperatively, he has done well. Post procedure device interrogation reveals appropriate function. There are some PVCs noted. He remains asymptomatic. Surgical incision is clean and dry. Post procedure chest x-ray is stable. He will be discharged home today in stable condition with prophylactic antibiotics and hydrocodone for early postoperative discomfort. He will be scheduled follow-up in [facility] in 1 week. At the time of discharge he is in stable condition. Discharge instructions have been reviewed with him at bedside. Physical Exam Chest: OTHER: Surgical incision is clean and dry. There is minimal ecchymosis. There is no substantial fluid collections noted. No evidence for infection. Resp: COMMON NORMALS: normal respiratory effort, No use of accessory muscles and clear to auscultation bilaterally AUSCULTATION: clear to auscultation bilaterally Cardio: COMMON NORMALS: regular rate, regular rhythm, S1 normal heart sound present and No murmurs present (Cardio) RATE: regular rate RHYTHM: regular rhythm HEART SOUNDS: S1 normal heart sound present OTHER: Occasional PVC noted on rhythm monitor. Extremity: COMMON NORMALS: normal to inspection and no clubbing, cyanosis or edema Discharge Data Studies Completed and Pending Completed Studies During Hospitalization Category Date Time Status XR chest 1V portable [id number] Routine Exams 08/26/22 08:52 Completed Pending at discharge Category Date Time Status XR chest 1V portable [id number] Stat Exams 08/27/22 05:47 Taken Radiology Impressions C-Arm Fluoroscopy 08/26/22 05:58 Impression: Insertion of AICD. Laboratory Results WBC 9.2 10^3/uL (4.0-10.0) 08/27/22 04:47 RBC 4.70 10^6/uL (4.1-5.3) 08/27/22 04:47 Hgb 14.1 g/dL (11.7-16.6) 08/27/22 04:47 Hct 43.5 % (42.0-52.0) 08/27/22 04:47 MCV 92.6 fl (80-94) 08/27/22 04:47 MCH 30.0 pg (28.0-34.0) 08/27/22 04:47 MCHC 32.4 g/dL (30.0-36.0) 08/27/22 04:47 RDW 13.2 % (12.1-15.1) 08/27/22 04:47 Plt Count 171 10^3/cmm (130-400) 08/27/22 04:47 MPV 10.9 fL (7.4-10.4) H 08/27/22 04:47 Neut % (Auto) 64.3 % 08/27/22 04:47 Lymph % (Auto) 19.9 % 08/27/22 04:47 [place] % (Auto) 12.3 % 08/27/22 04:47 Eos % (Auto) 2.4 % 08/27/22 04:47 Baso % (Auto) 0.8 % 08/27/22 04:47 Neut # (Auto) 5.94 10^3/uL (1.8-7.7) 08/27/22 04:47 Lymph # (Auto) 1.8 10^3/uL (0.8-4.8) 08/27/22 04:47 [place] # (Auto) 1.1 10^3/uL (0.2-0.9) H 08/27/22 04:47 Eos # (Auto) 0.2 10^3/uL (0.0-0.8) 08/27/22 04:47 Baso # (Auto) 0.1 10^3/uL (0.0-0.1) 08/27/22 04:47 Nucleated RBC % (auto) 0 % 08/27/22 04:47 Nucleated RBCs # 0.0 /100WBC 08/27/22 04:47 Sodium 139 mmol/L (136-145) 08/27/22 04:47 Potassium 4.0 mmol/L (3.5-5.1) 08/27/22 04:47 Chloride 102 mmol/L (98-107) 08/27/22 04:47 Carbon Dioxide 27 mmol/L (22-29) 08/27/22 04:47 Anion Gap 14.0 (5-19) 08/27/22 04:47 BUN 26 mg/dL (8-23) H 08/27/22 04:47 Creatinine 1.2 mg/dL (0.7-1.2) 08/27/22 04:47 GFR Calculation Not Reportable 08/27/22 04:47 Glucose 159 mg/dL (65-115) H 08/27/22 04:47 POC Glucose 189 mg/dL (70-110) H 08/27/22 06:36 Calculated Osmolality 296 mOsm/kg (285-295) H 08/27/22 04:47 Calcium 8.8 mg/dL (8.5-10.5) 08/27/22 04:47 Total Bilirubin 0.5 mg/dL (0.15-1.2) 08/27/22 04:47 AST 21 U/L (0-40) 08/27/22 04:47 ALT 25 U/L (0-41) 08/27/22 04:47 Alkaline Phosphatase 97 U/L (40-130) 08/27/22 04:47 Total Protein 6.8 g/dL (6.6-8.7) 08/27/22 04:47 Albumin 3.8 g/dL (3.5-5.2) 08/27/22 04:47 Globulin 3.0 g/dL (1.3-4.6) 08/27/22 04:47 Procedures Performed Single-lead AICD implantation on August 26, 2022: Vitals Last Vital Signs Temp 97.9 F 08/27/22 04:05 Pulse 43 L 08/27/22 04:05 Resp 16 08/27/22 04:05 BP 176/57 08/27/22 04:05 Pulse Ox 96 08/27/22 04:05 O2 Del Method 08/27/22 04:05 Discharge Plan Discharge Patient Disposition: Home Condition: Stable Prescriptions: New hydrocodone-acetaminophen 5-325 mg Tablet 1 tab PO Q6H PRN (Reason: Moderate Pain) Qty: 16 0RF Bactrim DS 800-160 mg tablet 1 tab PO BID Qty: 6 0RF Continued Farxiga 10 mg tablet 10 mg PO DAILY aspirin 81 mg tablet,delayed release (DR/EC) 81 mg PO DAILY insulin aspart U-100 [Novolog FlexPen U-100 Insulin] 100 unit/mL (3 mL) insulin pen See Rx Instructions SUBCUT TID Rx Instructions: Use per sliding scale 6 times daily; Mao dose 100Units per day lansoprazole [Prevacid] 30 mg capsule,delayed release(DR/EC) 30 mg PO DAILY ramipril 10 mg capsule 20 mg PO DAILY ICaps AREDS2 250 mg-200 unit -12.5 mg-1 mg capsule 2 cap PO BID carvedilol 6.25 mg tablet 6.25 mg PO BID Qty: 180 3RF Rx Instructions: must administer with a meal/food Toujeo Max U-300 SoloStar 300 unit/mL (3 mL) insulin pen 60 unit SUBCUT DAILY Qty: 6 6RF gabapentin 300 mg capsule 300 mg PO .nightly 90 Days Qty: 90 0RF Rx Instructions: increase to 2 tablet at bedtime in 2 weeks furosemide [Lasix] 20 mg tablet 20 mg PO DAILY Qty: 90 3RF clopidogrel 75 mg tablet 75 mg PO DAILY Qty: 90 3RF Discharge Orders: Discharge Order (Routine); Ordered 08/27/22 Ordered By: Freddy Tony Referrals: [facility] [Provider Group] - 1 week (Pacemaker Clinic) Discharge Diet: Usual diet Discharge Activity: Limit activity as instructed Patient Instructions: Opioid Safety Activity Restrictions/Additional Instructions: May remove bandage in 2 days May begin daily showers in 3 days Dry incision carefully after showers. May re-cover if desired to prevent irritation from clothing. No swimming or tub baths x 2 weeks No ointments on incision Report drainage, redness, heat, increased pain, or swelling to clinic Do not raise left arm above eye level for 2 weeks No heavy lifting or pulling for 2 weeks Discharge Attestations Time Spent in Discharge Care*: less than 30 min Specific Discharge Activities: educating patient, discussing with pcp/other providers, documenting/other paperwork and evaluating patient/reviewing data Status at Discharge: Cognitive status at discharge: cognitively intact, Behavioral status at discharge: cooperative, Functional status at discharge: independent ambulation, Overall status at discharge: patient is back to baseline Quality Metrics Clinical Quality Measures [ No reported AMI, CVA or VTE this stay] Coding Level of Care Code Acute Code for Chg Fwd Diagnoses Congestive heart failure I50.9
[2022-08-27] MEDS: insulin lispro 100 unit/1 mL SUBCUT (07:23)
[2022-08-27] MEDS: FUROsemide 20 mg Tablet PO (07:24)
[2022-08-27] MEDS: pantoprazole DR 40 mg Tablet PO (07:24)
[2022-08-27 08:00] VITALS: BP 128/65; PULSE 71; RESP 16; TEMP 36.4; O2SAT 92
[2022-08-27 10:58] VITALS: BP 128/65; PULSE 71; RESP 16; TEMP 36.4; O2SAT 92
== END 2022-08-27 10:59 | disposition home or self-care (01) ==
LOC: MEDSURG 11:43
PROVIDERS: Admitting Provider Thoracic Surgery (Cardiothoracic Vascular Surgery); PCP Family Medicine; Visit Provider Thoracic Surgery (Cardiothoracic Vascular Surgery)
PROC: 0JH608Z Insertion of Defibrillator Generator into Chest Subcutaneous Tissue and Fascia, Open Approach (ICD-10-PCS; CPT 33249; principal; 2022-08-26 07:00)
DX: I50.9 Heart failure, unspecified (principal); I25.5 Ischemic cardiomyopathy; Z79.82 Long term (current) use of aspirin; Z79.4 Long term (current) use of insulin; Z87.891 Personal history of nicotine dependence; J44.9 Chronic obstructive pulmonary disease, unspecified; I25.10 Atherosclerotic heart disease of native coronary artery without angina pectoris; E11.9 Type 2 diabetes mellitus without complications; I10 Essential (primary) hypertension
CPT/HCPCS: 33249; 36415; 36416; 71045; 76000; 80053; 82962; 85025; 93005; 96372; C1722; C1777; G0378; J0690; J1815; J3010; J7030

== ENCOUNTER → 2022-09-04 08:11 | Outpatient (BNVA) | payer MEDICARE, SELFPAY | PROVIDERS: PCP Family Medicine; Visit Provider Nurse Practitioner Family | DX: Z95.810 Presence of automatic (implantable) cardiac defibrillator (principal) | CPT/HCPCS: 93289; 99024; 99213 ==

== ENCOUNTER 2022-10-27 06:00 | Outpatient (RCR) | payer MEDICARE, SELFPAY | END 2022-11-26 23:59 | disposition home or self-care (01) | LOC: WPT 06:00 | PROVIDERS: Visit Provider Family Medicine | DX: M25.562 Pain in left knee (principal) | CPT/HCPCS: 97110; 97112; 97163; 97530 ==

== ENCOUNTER → 2022-11-04 09:58 | Outpatient (BNVA) | payer MEDICARE, SELFPAY | PROVIDERS: PCP Family Medicine; Visit Provider Family Medicine | DX: E11.9 Type 2 diabetes mellitus without complications (principal); I50.9 Heart failure, unspecified | CPT/HCPCS: 80053; 80061; 83036 ==

== ENCOUNTER 2022-11-27 06:00 | Outpatient (RCR) | payer MEDICARE, SELFPAY | END 2022-12-26 23:59 | disposition home or self-care (01) | LOC: WPT 06:00 | PROVIDERS: Visit Provider Family Medicine | DX: M25.562 Pain in left knee (principal) | CPT/HCPCS: 97110; 97112; 97530 ==

== ENCOUNTER → 2022-12-18 11:07 | Outpatient (BNVA) | payer MEDICARE, SELFPAY | PROVIDERS: Visit Provider Specialist | DX: Z95.810 Presence of automatic (implantable) cardiac defibrillator (principal); I25.10 Atherosclerotic heart disease of native coronary artery without angina pectoris; I10 Essential (primary) hypertension | CPT/HCPCS: 99214 ==

== ENCOUNTER → 2023-01-26 12:07 | Outpatient (BNVA) | payer MEDICARE, SELFPAY | PROVIDERS: Visit Provider Family Medicine | DX: S62.634A Displaced fracture of distal phalanx of right ring finger, initial encounter for closed fracture (principal); W19.XXXA Unspecified fall, initial encounter; M25.841 Other specified joint disorders, right hand | CPT/HCPCS: 73120 ==

== ENCOUNTER 2023-02-03 06:00 | Outpatient (CLI) | payer MEDICARE, SELFPAY | END 2023-02-03 06:01 | disposition home or self-care (01) | LOC: SOT 02-04 09:22 | PROVIDERS: Visit Provider Student in an Organized Health Care Education/Training Program | DX: Z46.89 Encounter for fitting and adjustment of other specified devices (principal); S62.66 Nondisplaced fracture of distal phalanx of finger; X58.XXXS Exposure to other specified factors, sequela | CPT/HCPCS: 97760; L3925 ==

== ENCOUNTER → 2023-02-03 11:23 | Outpatient (BNVA) | payer MEDICARE, SELFPAY | PROVIDERS: Referring Provider Family Medicine; Visit Provider Student in an Organized Health Care Education/Training Program | DX: S62.634A Displaced fracture of distal phalanx of right ring finger, initial encounter for closed fracture; W18.39XA Other fall on same level, initial encounter; Z46.89 Encounter for fitting and adjustment of other specified devices; S62.66 Nondisplaced fracture of distal phalanx of finger; X58.XXXS Exposure to other specified factors, sequela | CPT/HCPCS: 73130; 97760; 99203; L3925 ==

== ENCOUNTER → 2023-03-17 09:44 | Outpatient (BNVA) | payer MEDICARE, SELFPAY | PROVIDERS: Visit Provider Physician Assistant | DX: S62.634D Displaced fracture of distal phalanx of right ring finger, subsequent encounter for fracture with routine healing; W18.30XD Fall on same level, unspecified, subsequent encounter | CPT/HCPCS: 73130; 99024; 99213 ==

== ENCOUNTER 2023-04-21 10:39 | Outpatient (RCR) | payer MEDICARE, SELFPAY | END 2023-04-28 23:59 | disposition home or self-care (01) | LOC: SOT 10:39 | PROVIDERS: PCP Nurse Practitioner; Visit Provider Physician Assistant | DX: S62.634D Displaced fracture of distal phalanx of right ring finger, subsequent encounter for fracture with routine healing (principal); X58.XXXD Exposure to other specified factors, subsequent encounter | CPT/HCPCS: 97022; 97110; 97165 ==

== ENCOUNTER 2023-04-29 06:00 | Outpatient (RCR) | payer MEDICARE, SELFPAY | END 2023-05-28 23:59 | disposition home or self-care (01) | LOC: SOT 06:00 | PROVIDERS: PCP Nurse Practitioner; Visit Provider Physician Assistant | DX: S62.634D Displaced fracture of distal phalanx of right ring finger, subsequent encounter for fracture with routine healing (principal); X58.XXXD Exposure to other specified factors, subsequent encounter | CPT/HCPCS: 97022; 97110; 97140; L3925 ==

== ENCOUNTER → 2023-07-01 13:40 | Outpatient (BNVA) | payer MEDICARE, SELFPAY | PROVIDERS: PCP Nurse Practitioner; Visit Provider Internal Medicine | DX: J44.9 Chronic obstructive pulmonary disease, unspecified (principal); I25.10 Atherosclerotic heart disease of native coronary artery without angina pectoris; E11.9 Type 2 diabetes mellitus without complications; I11.0 Hypertensive heart disease with heart failure; I50.9 Heart failure, unspecified; Z87.891 Personal history of nicotine dependence; Z79.84 Long term (current) use of oral hypoglycemic drugs | CPT/HCPCS: 99214 ==

== ENCOUNTER → 2023-07-23 09:12 | Outpatient (BNVA) | payer MEDICARE, SELFPAY | PROVIDERS: PCP Nurse Practitioner; Visit Provider Nurse Practitioner Family | DX: E11.9 Type 2 diabetes mellitus without complications (principal); Z79.899 Other long term (current) drug therapy; I50.9 Heart failure, unspecified; I11.0 Hypertensive heart disease with heart failure | CPT/HCPCS: 80053; 80061; 81003; 83036; 84443; 85025 ==

== ENCOUNTER → 2023-10-06 16:12 | Outpatient (BNVA) | payer MEDICARE, SELFPAY | PROVIDERS: PCP Nurse Practitioner; Visit Provider Nurse Practitioner Family | DX: M19.071 Primary osteoarthritis, right ankle and foot (principal) | CPT/HCPCS: 73630 ==

== ENCOUNTER → 2024-01-06 11:00 | Outpatient (BNVA) | payer MEDICARE, SELFPAY | PROVIDERS: PCP Nurse Practitioner; Visit Provider Nurse Practitioner Family | DX: I25.10 Atherosclerotic heart disease of native coronary artery without angina pectoris (principal); Z95.810 Presence of automatic (implantable) cardiac defibrillator; I10 Essential (primary) hypertension; Z87.891 Personal history of nicotine dependence | CPT/HCPCS: 99214 ==

== ENCOUNTER → 2024-07-22 10:23 | Outpatient (BNVA) | payer MEDICARE, SELFPAY | PROVIDERS: PCP Nurse Practitioner Family; Visit Provider Internal Medicine | DX: J44.9 Chronic obstructive pulmonary disease, unspecified (principal); I25.10 Atherosclerotic heart disease of native coronary artery without angina pectoris; E11.9 Type 2 diabetes mellitus without complications; I11.0 Hypertensive heart disease with heart failure; I50.9 Heart failure, unspecified; Z87.891 Personal history of nicotine dependence; Z79.4 Long term (current) use of insulin | CPT/HCPCS: 99214 ==

== ENCOUNTER → 2024-10-28 09:39 | Outpatient (BNVA) | payer MEDICARE, SELFPAY | PROVIDERS: PCP Nurse Practitioner Family; Visit Provider Nurse Practitioner Family | DX: E11.9 Type 2 diabetes mellitus without complications (principal); Z79.4 Long term (current) use of insulin; E55.9 Vitamin D deficiency, unspecified; I10 Essential (primary) hypertension; I50.9 Heart failure, unspecified | CPT/HCPCS: 80053; 80061; 82306; 83036; 84443; 85025 ==

== ENCOUNTER → 2025-02-02 09:25 | Outpatient (BNVA) | payer MEDICARE, SELFPAY | PROVIDERS: PCP Nurse Practitioner Family; Visit Provider Nurse Practitioner Family | DX: I10 Essential (primary) hypertension (principal); E11.9 Type 2 diabetes mellitus without complications; Z79.4 Long term (current) use of insulin; E55.9 Vitamin D deficiency, unspecified; I50.9 Heart failure, unspecified; E78.2 Mixed hyperlipidemia | CPT/HCPCS: 80053; 80061; 81003; 82306; 83036; 84443; 85025 ==

== ENCOUNTER → 2025-02-15 11:51 | Outpatient (BNVA) | payer MEDICARE, SELFPAY | PROVIDERS: PCP Nurse Practitioner Family; Visit Provider Internal Medicine Cardiovascular Disease | DX: Z45.02 Encounter for adjustment and management of automatic implantable cardiac defibrillator (principal) | CPT/HCPCS: 93296 ==

== ENCOUNTER → 2025-05-23 12:51 | Outpatient (BNVA) | payer MEDICARE, SELFPAY | PROVIDERS: PCP Nurse Practitioner Family; Visit Provider Nurse Practitioner Family | DX: I25.10 Atherosclerotic heart disease of native coronary artery without angina pectoris (principal); I11.0 Hypertensive heart disease with heart failure; I50.20 Unspecified systolic (congestive) heart failure; I48.91 Unspecified atrial fibrillation; Z79.01 Long term (current) use of anticoagulants; Z91.148 Patient's other noncompliance with medication regimen for other reason; J44.9 Chronic obstructive pulmonary disease, unspecified; E11.9 Type 2 diabetes mellitus without complications; Z79.4 Long term (current) use of insulin; Z79.84 Long term (current) use of oral hypoglycemic drugs; Z95.1 Presence of aortocoronary bypass graft; Z95.810 Presence of automatic (implantable) cardiac defibrillator; Z87.891 Personal history of nicotine dependence | CPT/HCPCS: 99213 ==

== ENCOUNTER → 2025-06-01 09:42 | Outpatient (BNVA) | payer MEDICARE, SELFPAY | PROVIDERS: PCP Nurse Practitioner Family; Visit Provider Nurse Practitioner Family | DX: E11.9 Type 2 diabetes mellitus without complications (principal); E78.2 Mixed hyperlipidemia; Z79.4 Long term (current) use of insulin; R74.8 Abnormal levels of other serum enzymes; I50.9 Heart failure, unspecified | CPT/HCPCS: 80053; 80061; 81003; 82607; 82746; 83036; 83721; 83735; 85025 ==